=== PATIENT | male | born 1965 | race Caucasian/White ===

== ENCOUNTER 2021-04-16 10:54 | Emergency (ER) | payer BC ==
[~2021-04-16] VITALS: Ht 177.8 cm; Wt 79.4 kg
[2021-04-16 11:35] LABS: HEMOGLOBIN 14.9 gm/dl (14.0-17.5); RED BLOOD COUNT 4.8 M/UL (4.20-5.50); WHITE BLOOD COUNT 16.4 K/UL (4.5-11.0)
[2021-04-16] MEDS ORDERED: LEVOFLOXACIN750 MG PO (16:24)
== END 2021-04-16 16:45 | disposition left against medical advice (07) ==
LOC: ER1 10:54 → CDU 15:13
PROVIDERS: Physician Assistant
DX: N17.9 Acute kidney failure, unspecified (principal); I47.1 Supraventricular tachycardia; D72.829 Elevated white blood cell count, unspecified; Z88.5 Allergy status to narcotic agent
CPT/HCPCS: 0240U; 71045; 80053; 81001; 83605; 84439; 84443; 85025; 86140; 87040; 93005; 96374; 99285; J0153; J2185